=== PATIENT | female | born 1985 | race Caucasian/White ===

== ENCOUNTER 2019-09-18 15:23 | Emergency (ER) | payer OTHER, SELFPAY ==
[2019-09-18 15:32] VITALS: BP 111/55; PULSE 68; RESP 20; TEMP 36.8; O2SAT 100
--- NOTE | 2019-09-18 15:55 | ED.SKABFB ---
HPI - Skin/Abscess/Foreign Bdy General Chief complaint: Skin/Abscess/Foreign Body Stated complaint: rash on arms Time Seen by Provider: 09/18/19 15:55 Source: patient and RN notes reviewed Mode of arrival: ambulatory Limitations: no limitations History of Present Illness HPI narrative: This is a 34 years old female presents to the office for an evaluation of poison lonnie rash on her left arm. States, she was working in the [employer] and came in contact with poison lonnie. She has tried a home remedies that she normal use for poison lonnie in the past with no success. She took one dose of benadry to control the the itchiness. This morning, she noticed her affected arm is more red, swollen and oozing yellow drainage from affected site. States, the rash was itchy at the beginning however is seem to subside alittle bite; however she has some pain in her arm with some tingling sensation in her fingers. Denies fever or vomiting. Denies history of diabetes. TD is up to date. Related Data Allergies Allergy/AdvReac Type Severity Reaction Status Date / Time Sulfa (Sulfonamide Allergy Unknown Rash Verified 09/18/19 15:41 Antibiotics) Review of Systems Review of Systems: Narrative: CONSTITUTIONAL: Denies fever ENT: Denies congestion CARDIOVASCULAR: Denies chest pain RESPIRATORY: Denies dyspnea GASTROINTESTINAL: Denies abdominal pain, vomiting. Reports a little nausea SKIN:Reports itchy/painful rash on her left arm MUSCULOSKELETAL: Reports left arm sore NEUROLOGIC: Denies lightheaded; however she reports feeling malaise/tired PMFSH Comments At time of signature, I agree with nursing past medical, surgical, social and family history. There is no relevant family history pertinent to the presenting complaint. Exam Narrative: Exam Narrative: GENERAL: This is a well-nourished, well-developed patient, in no apparent distress. NECK: Neck supple, non-tender with lymphadenopathy CARDIOVASCULAR: Regular rate and rhythm without murmurs, gallops, or rubs. RESPIRATORY: Clear to auscultation. Breath sounds equal bilaterally. No wheezes, rales, or rhonchi. GASTROINTESTINAL: Abdomen soft, non-tender, nondistended. Bowel sounds are active. No hepato-splenomegaly, or palpable masses. No guarding. SKIN: left anterior upper arm noted a few macular-erythema streak jose r with secondary cellulitis. NEURO: awake, alert, and oriented to person, place and time. There were no obvious focal neurologic abnormalities. Steady gait EXTREMITIES: Normal range of motion in bilateral upper extremities. Byron Coma Scale Eye Opening: Spontaneous 4 Byron Coma Scale Motor: Obeys Commands 6 Byron Coma Scale Verbal: Oriented 5 Course Vital Signs Vital signs: Vital Signs Temperature 98.3 F 09/18/19 15:32 Pulse Rate 68 09/18/19 15:32 Respiratory Rate 20 09/18/19 15:32 Blood Pressure 111/55 L 09/18/19 15:32 Pulse Oximetry 100 09/18/19 15:32 Temperature 98.3 F 09/18/19 15:32 Pulse Rate 68 09/18/19 15:32 Respiratory Rate 20 09/18/19 15:32 Blood Pressure 111/55 L 09/18/19 15:32 Pulse Oximetry 100 09/18/19 15:32 MDM - Skin/Abscess/Foreign Bdy MDM Narrative Medical decision making narrative: Discharge instructions reviewed with patient, as well as provided in writing per nursing staff. The instructions also include specific and strict return/GO TO THE ER as well as f/u information. All questions have been answered, and the patient deny any further questions with discharge and discharge plan. Differential Diagnosis Differential diagnosis: Likely abscess of skin or subcutaneous tissue, viral exanthem, dermatophytosis, urticaria, herpes zoster, cellulitis, eczema, insect bites, impetigo and contact dermatitis Critical Care Time Critical Care Time Critical Care Time: No Discharge Plan Discharge Clinical Impression: Contact dermatitis Qualifiers: Contact dermatitis type: irritant Contact dermatitis trigger: non-food plants Qualified Cod
[2019-09-18] MEDS: methylPREDNISolone ACETATE 40 MG/ML VIAL 80 MG IM (16:11)
== END 2019-09-18 16:25 | disposition home or self-care (01) ==
PROVIDERS: Emergency Provider Nurse Practitioner
DX: L24.7 Irritant contact dermatitis due to plants, except food (principal); L03.114 Cellulitis of left upper limb
CPT/HCPCS: 99213; G0463; J1030

== ENCOUNTER 2019-09-29 15:30 | Emergency (ER) | payer OTHER, SELFPAY ==
[2019-09-29 15:38] VITALS: BP 114/67; PULSE 93; RESP 16; TEMP 37.2; O2SAT 100
--- NOTE | 2019-09-29 15:40 | ED.FEVER ---
HPI - Fever General Chief Complaint: Urogenital-Female Stated Complaint: fever/nausea/lower back pain Time Seen by Provider: 09/29/19 15:41 Source: patient and RN notes reviewed History of Present Illness HPI Narrative: Patient is a 34-year-old female that presents the urgent care with complaints of possible UTI. Patient states that she has had fever, nausea, low back pain and urinary frequency. Patient states on the seventh she was placed on Keflex and believes she developed a yeast infection from the medication. Patient was on the medication for cellulitis, secondary to poison lonnie. Patient has not been seen since her symptoms of the yeast infection. Patient states that the yeast infection has improved without any caww-jom-qddxmtp treatment. Patient states she has minimal discharge at this time. Patient states that she just completed the Keflex today and noticed the medication was the cause for her nausea. Patient denies any vomiting or abdominal pain. Patient does have a history of one kidney stone. No other acute complaints. No acute distress noted. Patient aware the plan of care. Related Data Allergies Allergy/AdvReac Type Severity Reaction Status Date / Time Sulfa (Sulfonamide Allergy Unknown Rash Verified 09/18/19 15:41 Antibiotics) Review of Systems Review of Systems: Narrative: CONSTITUTIONAL: Reports of low-grade fevers EYES: Denies visual changes, redness, or discharge. ENT: Denies rhinorrhea, congestion, sore throat, or otalgia. CARDIOVASCULAR: Denies chest pain, palpitations, or edema. RESPIRATORY: Denies cough or dyspnea. GASTROINTESTINAL: Reports of nausea without vomiting, diarrhea, abdominal pain GENITOURINARY: Reports of urinary frequency SKIN: Denies rash or itching. MUSCULOSKELETAL: Reports of low back pain NEUROLOGIC: Denies headache, numbness, or weakness. All other systems reviewed are negative, except as documented in HPI. PMFSH Comments At the time of my signature, I reviewed and agree with the nursing past medical, surgical, social, and family history. There is no relevant family history pertinent to the patient complaint. Exam Narrative: Exam Narrative: GENERAL: This is a well-nourished, well-developed patient, in no apparent distress. HEAD: normocephalic, atraumatic. EYES: PERRL. Sclera clear/white. Vision is grossly intact. EARS: External ears normal NOSE: External nose normal with no obvious nasal discharge THROAT: Mucous membranes moist NECK: Neck supple GASTROINTESTINAL: Abdomen soft, non-tender, nondistended. SKIN: warm, intact with no suspicious lesions or rash, good texture and turgor. NEURO: awake, alert, and oriented to person, place and time. There were no obvious focal neurologic abnormalities. EXTREMITIES: No clubbing, cyanosis, or edema. BACK: Mild bilateral CVA tenderness Course Vital Signs Vital signs: Vital Signs Temperature 98.9 F 09/29/19 15:38 Pulse Rate 93 09/29/19 15:38 Respiratory Rate 16 09/29/19 15:38 Blood Pressure 114/67 09/29/19 15:38 Pulse Oximetry 100 09/29/19 15:38 Temperature 98.9 F 09/29/19 15:38 Pulse Rate 93 09/29/19 15:38 Respiratory Rate 16 09/29/19 15:38 Blood Pressure 114/67 09/29/19 15:38 Pulse Oximetry 100 09/29/19 15:38 Reviewed MDM - Fever MDM Narrative Medical decision making narrative: Reviewed lab results with the patient. She is aware that urine analysis was negative for indicative infection however there was a small amount of blood in the urine. We will culture the urine and call you if antibiotics are necessary based on culture results. If you do not get a call within 3 days it is likely negative however you may check back at the facility after the 72-hour period. Advised the patient to increase water intake and eat a bland diet. Use Zofran as needed for nausea. If you develop any increase in symptoms associated with increased low back pain, nausea, vomiting, abdominal pain, high fevers, lethargy
== END 2019-09-29 16:08 | disposition home or self-care (01) ==
PROVIDERS: Emergency Provider Nurse Practitioner Family; PCP Nurse Practitioner Adult Health
DX: R11.0 Nausea (principal)
CPT/HCPCS: 81003; 87086; 99213; G0463

== ENCOUNTER 2023-10-25 15:48 | Emergency (ER) | payer OTHER, SELFPAY ==
[2023-10-25 15:55] VITALS: BP 119/78; PULSE 98; RESP 20; TEMP 36.7; O2SAT 100
--- NOTE | 2023-10-25 17:02 | ED.DENTAL ---
HPI - Dental/Oral General Chief complaint: Dental/Oral Stated complaint: Toothache Time Seen by Provider: 10/25/23 16:35 Source: patient, RN notes reviewed and old records reviewed Mode of arrival: ambulatory Limitations: no limitations History of Present Illness HPI Narrative: 38 year old female who presents to [facility] care with complaints of dental pain to the left most posterior molar and swelling to her left side of face for the past 3 days. Patient reports that pain has increased and now swelling to the left side of her face. Patient reports throbbing type of pain rates her pain at 6/10. Patient reports no difficulty with her swallowing or with her breathing. MD Complaint: tooth pain Location: Tooth # (17) Onset (ago): day(s) (3rd day of symptoms) Severity scale (1-10): 6 Treatment prior to arrival: oral analgesic (Naproxen and Tramadol) Related Data Home Medications Medication Instructions Recorded Confirmed cyclobenzaprine 5 mg tablet 5 mg PO TID PRN Spasms 10/25/23 10/25/23 naproxen 500 mg tablet 500 mg PO BID 10/25/23 10/25/23 Allergies Allergy/AdvReac Type Severity Reaction Status Date / Time Sulfa (Sulfonamide Allergy Unknown Rash Verified 10/25/23 16:16 Antibiotics) Review of Systems Review of Systems: CONSTITUTIONAL: Denies fever, chills, or sweats. ENT: Denies rhinorrhea, congestion, sore throat, or otalgia. Reports dental pain to #17 tooth CARDIOVASCULAR: Denies chest pain, palpitations, or edema. RESPIRATORY: Denies cough or dyspnea. SKIN: Denies rash or itching. MUSCULOSKELETAL: Denies myalgia. NEUROLOGIC: Denies headache All systems reviewed & are unremarkable except as noted in HPI and below [facility] Past Medical History Medical History (Updated 10/27/23 @ 16:24 by Radha López NP) Fracture of left wrist Herniated cervical disc Kidney stones Surgical History Surgical History (Updated 10/27/23 @ 16:16 by Radha López NP) H/O tubal ligation History of tonsillectomy Previous section Social History Social History Smoking status: Current every day smoker Tobacco type: cigarettes Alcohol intake: current Alcohol use details: social Substance use type: does not use Living arrangements: with family Gender identity (if verbalized by the patient): Female Comments At time of signature, agree with nursing past medical, surgical, social and family history. There is no relevant family history pertinent to the presenting complaint Exam Narrative: GENERAL: Well-appearing, well-nourished, and in no acute distress. HEAD: Normocephalic, atraumatic. EYES: PERRLA and EOMI. ENT: Nares clear, no rhinorrhea or epistaxis. Mucous membranes moist. Left lower wisdom tooth impacted, facial swelling to the left side of face. NECK: Supple.no lymphadenopathy CHEST: Clear to auscultation. No respiratory distress.SAO2 100% on room air HEART: Regular rate and rhythm. No murmur heard. Normal peripheral pulses. SKIN: Warm, dry, no rash. NEURO: No focal deficits. Alert and oriented x3. Course Course Emergency Course: Patient is aware of diagnosis, understands and agrees to treatment plan. Anticipatory guidance given. Patient agrees to follow-up as directed and is aware of reasons to seek care at the emergency department. Portions of this record may have been created with voice recognition software Level of Care: Express Care Visit Vital Signs Vital signs: Vital Signs Temperature 36.7 C 10/25/23 15:55 Pulse Rate 98 10/25/23 15:55 Respiratory Rate 10/25/23 15:55 Blood Pressure 119/78 10/25/23 15:55 Pulse Oximetry 100 10/25/23 15:55 Oxygen Delivery Room Air 10/25/23 15:55 Temperature 36.7 C 10/25/23 15:55 Pulse Rate 98 10/25/23 15:55 Respiratory Rate 10/25/23 15:55 Blood Pressure 119/78 10/25/23 15:55 Pulse Oximetry 100 10/25/23 15:55 Oxygen Delivery Room
== END 2023-10-25 17:25 | disposition home or self-care (01) ==
PROVIDERS: Emergency Provider Registered Nurse; PCP Physician Assistant
DX: K08.89 Other specified disorders of teeth and supporting structures (principal); R22.0 Localized swelling, mass and lump, head; F17.210 Nicotine dependence, cigarettes, uncomplicated
CPT/HCPCS: 99213; G0463

== ENCOUNTER 2025-02-20 08:26 | Emergency (ER) | payer OTHER, SELFPAY ==
--- NOTE | ~2025-02-20 | XR_ITS ---
EXAMINATION: XR toe 5th LT min 2V DATE: 02/20/2025 08:50 INDICATION: Trauma to the left fifth toe TECHNIQUE: Dorsal plantar, lateral and 2 oblique views of the left fifth were obtained. COMPARISON: None FINDINGS: Alignment is normal. No fracture. Joint spaces are normal. Soft tissues are unremarkable. IMPRESSION: Negative radiographs of the left fifth toe. Reviewed, dictated and finalized at location A.
--- OUTSIDE RECORDS SUMMARY | 2025-02-20 08:30 | XMS_ITS | Clinical Summary ---
Author Organization [facility] Address [address] [place] [address] Care Team Providers Care Entry Level Marketing Representative Name Role Phone Tucker Mark [employer] ARCHITECT-GAS WELL DRILLING MANAGER Primary Care Provider [phone] Source Comments [facility],non-owned Affiliates and Associated Physician Practices is amultiple site organization consisting of ambulatory clinics and hospital sitesin [place], [place], [place] and [place]. This disclosure is being madepursuant to the Care Everywhere program and may not contain all information available regarding this patient. Last updated 18.[facility] Allergies Active Allergy Reactions Criticality Noted Date Comments Sulfa Drugs Urticaria Medium 11/25/2017 Medications * Be aware that medications may not be up to date on this document. Alwaysverify current medications with the patient. 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 Velamentous insertion of umbilical cord in third trimester 10/23/2014 Social History Tobacco Use Types Packs/Day Years Used Date Smoking Tobacco: Every Day Smokeless Tobacco: Never Alcohol Use Standard Drinks/Week Comments Yes 0 (1 standard drink = 0.6 oz pur e alcohol) Comments No Sex and Gender Information Value Date Recorded Sex Assigned at Not on file 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 Gender Identity Not on file Sexual Orientation Not on file Last Filed Vital Signs Vital Sign Reading Time Taken Comments Blood Pressure 110/70 02/07/2022 11:04 AM CDT Pulse 90 02/07/2022 11:04 AM CDT Temperature - - Respiratory Rate - - Oxygen Saturation 100% 02/07/2022 11:04 AM CDT Inhaled Oxygen Concentration - - Weight 65.3 kg (144 lb) 02/07/2022 11:04 AM CDT Height 160 cm (5' 3) 02/07/2022 11:04 AM CDT Body Mass Index 25.51 02/07/2022 11:04 AM CDT Plan of Treatment Health Maintenance Due Date Last Done Comments LIPID TESTING 1983 MAMMOGRAM 1983 HIV SCREENING 1998 HEPATITIS C SCREENING 07/04/2001 DTAP/TDAP/TD VACCINES (1 - Tdap) 2002 HEPATITIS B VACCINE (1 of 3 - 19+ 3-dose series) 2002 PNEUMOCOCCAL VACCINE (1 of 2 - PCV) 2002 PAP SMEAR 2004 HPV VACCINE (1 - 3-dose SCDM series) 2010 DEPRESSION SCREENING 05/14/2024 COVID-19 VACCINE (1 - 2023-2 5 season) 2025 INFLUENZA VACCINE (#1) 2025 9, 04/11/2016 ZOSTER VACCINE (1 of 2) 2033 HIB VACCINE Aged Out No longer eligi ble based on patient's age to complete this topic MENINGOCOCCAL (Group B) VACCINE SHARED DECISION-MAKING Aged Out No longer eligible based on patient's age to complete this topic MENINGOCOCCAL GROUPS A/C/Y/W VACCINE Aged Out No longer eligible b ased on patient's age to complete this topic Insurance [facility] Care Teams Entry Level Marketing Representative Relationship Specialty Start Date End Date Tucker Mark, SOFTWARE SOLUTIONS ARCHITECT-GAS WELL DRILLING MANAGER [address] [facility] [address]Z [address] [address] PCP - General 01/06/22
--- OUTSIDE RECORDS SUMMARY | 2025-02-20 08:31 | XMS_ITS | Clinical Summary ---
Author Organization [facility] Address [address] [address] Phone Care Team Providers Care Customer Service Attendant Name Role Phone YadipippaEricka turner SHAYAN Primary Care Provider + Allergies Active Allergy Reactions Criticality Noted Date Comments Sulfa Antibiotics Hives 11/25/2017 Medications diphenhydrAMINE HCl (BENADRYL PO) Take by mouth. Active traMADol (ULTRAM) 50 MG TabletIndications:B ulging of cervical intervertebral disc,Cervical radiculopathy at C5 Take 1 Tablet by mouth every 6 hours as needed for Moderate or more severe pain. 90 Tablet 4 Active cyclobenzaprine (FLEXERIL) 5 MG Tablet Take 1 Tablet by mouth 3 times daily as needed for Muscle spasms. 42 Tablet 1 4 Active naproxen (NAPROSYN) 500 MG Tablet TAKE 1 TABLET BY MOUTH TWICE DAILY WITH MEALS 60 Tablet 5 4 Active Active Problems Problem Noted Date Diagnosed Date Incidental lung nodule, > 3mm and < 8mm 02/01/20 22 Cervical radiculopathy 01/31/2022 Bulging of cervical intervertebral disc 12/21/19 22 Immunizations Immunization Administration Dates Next Due Hepatitis A Vaccine 04/07/2008 Influenza, Injectable, Quadrivalent 02/20/2019,1 06/11/2015 Influenza, Seasonal, Injectable, Undefined 03/19 TDAP Vaccine 10/02/2014 Family History Medical History Relation Name Comments Chronic Obstructive Pulmonar y Disease Father Uche Ochoa Heart Attack Father Uche Ochoa Hypertension Mother Radha velasquez Thyroid Disease Mother Radha velasquez Cancer Paternal Grandfather Ric ochoa Relation Name Status Comments Father Uche Ochoa Alive Mother Radha velasquez Alive Paternal Grandfather Ric ochoa Social History Tobacco Use Types Packs/Day Years Used Date Smoking Tobacco: Every Day Cigarettes 1 23.3 Started: 11/08/2001 Smokeless Tobacco: Never Tobacco Cessation:Ready to Q uit: Not Asked; Counseling Given: Not Answered Alcohol Use Standard Drinks/Week Comments Yes 0 (1 standard drink = 0.6 oz pur e alcohol) socially PHQ-2 Answer Date Recorded Total Score - Questions 1-9 0 10/13 Education Answer Date Recorded What is the highest level of school you have completed or the highest degree you have received? 12th grade 05/31/2022 Sexually Active Control Partners Comments Yes Surgical Male Comments No Sex and Gender Information Value Date Recorded Sex Assigned at Not on file Legal Sex Female 3:48 PM CDT Gender Identity Not on file Sexual Orientation Not on file Last Filed Vital Signs Vital Sign Reading Time Taken Comments Blood Pressure 114/62 01/02/2023 10:26 AM CDT Pulse 73 01/02/2023 10:26 AM CDT Temperature 36.5 C (97.7 F) 01/02/2023 10:26 AM CDT Respiratory Rate 16 09/14/2022 10:04 AM CDT Oxygen Saturation 99% 01/02/2023 10:26 AM CDT Inhaled Oxygen Concentration - - Weight 62.1 kg (137 lb) 01/02/2023 10:26 AM CDT Height 160 cm (5' 3) 01/02/2023 10:26 AM CDT Body Mass Index 24.27 01/02/2023 10:26 AM CDT Plan of Treatment Upcoming Encounters Date Type Department Care Team (Late st Contact Info) Description 03/09/2025 4:40 PM CDT Office Visit [facility] - Family Medicine [facility] [address] [place] [address] Ericka Kaufman, PAC [address] [place] [address] Health Maintenance Due Date Last Done Comments Hepatitis C Virus (HCV) Screening 1983 Mammogram 1983 Hepatitis B Immunization (1 of 3 - 19+ 3-dose series) 2002 Human Papillomavirus (HPV) Immunization (1 - 3-dose SCDM series) 2010 Discussion re Starting/Frequency of Mammograms 2023 Td Immunization Every 10 Yea rs (Adults With 1 Tdap) 10/02/2024 10/02/2014 Influenza Immunization (#1) 01/12/202502/11, 04/11/2016, 03/19/2015 SARS-COV-2 Immunization (2 - season) 2025 09/25/2020 Pap Smear 02/08/2025 02/08/2022 Cervical Cancer Screening (CCS) 02/08/2027 HPV/Cotest 02/08/2027 02/08/2022 Respiratory Syncytial Virus (RSV) Immunization (Adult) (1 - 1-dose 75+ series) 2058 DTaP/Tdap/Td Immunization Discontinued 10/02/2014 Meningococcal Immunization (ACWY) Aged Out No longer eligible based on patient's age to complete this topic Pneumococcal Immunization Combined Aged Out No longer eligible based on patient's age to complete this topic Rotavirus Immunization Aged Out No lo nger eligible based on patient's age to complete this topic Procedures Procedure Name Priority Date/Time Associated Diagnosis Comments HUMAN PAPILLOMA VIRUS (HPV) Routine 02/08/2022 10:57 AM CDT Well woman exam PATHOLOGY CYTOLOGY REGULATORY ASSISTANT Routine 02/08/2022 10:57 AM CDT Well woman exam from Last 3 Months or Most Recently Relevant to Health Maintenance Results * PATHOLOGY CYTOLOGY REGULATORY ASSISTANT (02/08/2022 10:57 AM CDT) SPECIMEN ADEQUACY Satisfactory for evaluation. Endocervical/transf ormation zone component is present. 02/17/2022 3:45 PM CDT [facility] DESCRIPTIVE DIAGNOSIS NEGATIVE FOR INTRAEPITHELIAL LESIONS OR MALIGNANCY. 02/17/2022 3:45 PM CDT [facility] at 1545 CDT HPV Reflex if ASCUS? No 02/17/2022 3:45 PM CDT [facility] Comment:co test Automated Examination This sample was not evaluated by the automated imaging and review system due to technical and/or biologic factor(s). The case was screened, reviewed, and finalized by a cartoon designer and/or pathologist. 02/17/2022 3:45 PM CDT [facility] Disclaimer The PAP smear is a screening test designed to detect cancerous or precancerous cells of the uterine cervix. It is one of the best means available for detection of cervical cancer but still carries an inherent false-negative rate. The consequences of a false-negative PAP result can be minimized by adhering to current screening guidelines. The following are general guidelines recommended by the ACS, ASCP, ASCCP, and ACOG: PAP testing is recommended every three years for women 21-29, Co-Testing, a PAP test in conjunction with an HPV (Human Papillomavirus) test for women ages 30-65, and no PAP or HPV testing for women under the age of 21 or older than 65 unless clinically indicated. 02/17/2022 3:45 PM CDT [facility] Other CERVIX UTERI STRUCTURE / Unknown Non-Phlebotomy Collection / Unknown 02/08/2022 10:57 AM CDT 02/08/2022 10:57 AM CDT us Ericka Kaufman PAC PATHOLOGY/CYTOLOGY ORDER EAN Final Result [facility] [address] [place] [address], * HUMAN PAPILLOMA VIRUS (HPV) (02/08/2022 10:57 AM CDT) HPV OTHER HIGH RISK TYPES, PCR NEGATIVE NEGATIVE 02/09/2022 1:45 PM CDT [facility] Comment: The following Other High Risk types were not detected: 31, 33, 35, 39, 45, 51, 52, 56, 58, 59, 66, and 68. A negative high-risk HPV result does not exclude the possibility of future cytologic HSIL or underlying CIN2-3 or cancer. The presence of PCR inhibitors may cause false negative or invalid results. If concentrations of whole blood in the sample exceed 1.5% (dark red or brown coloration) in PreservCyt solution, there is a likelihood of obtaining a false-negative result. HPV TYPE 16 NEGATIVE NEGATIVE 02/09/2022 1:45 PM CDT [facility] Comment: A negative high-risk HPV result does not exclude the possibility of future cytologic HSIL or underlying CIN2-3 or cancer. The presence of PCR inhibitors may cause false negative or invalid results. If concentrations of whole blood in the sample exceed 1.5% (dark red or brown coloration) in PreservCyt solution, there is a likelihood of obtaining a false-negative result. HPV TYPE 18 NEGATIVE NEGATIVE 02/09/2022 1:45 PM CDT [facility] Comment: A negative high-risk HPV result does not exclude the possibility of future cytologic HSIL or underlying CIN2-3 or cancer. The presence of PCR inhibitors may cause false negative or invalid results. If concentrations of whole blood in the sample exceed 1.5% (dark red or brown coloration) in PreservCyt solution, there is a likelihood of obtaining a false-negative result. HPV ORDER BE USED FOR SCREENING OR DIAGNOSTIC SCREENING 02/09/2022 1:45 PM CDT [facility] Other Non-Phlebotomy Collection / Unknown 02/08/2022 10:57 AM CDT 02/08/2022 10:57 AM CDT [facility] - 02/09/2022 1:45 PM CDT Performed by Real-Time Polymerase Chain Reaction (PCR) on the D[employer] Kiko 4800. This assay has been validated for use with post-aliquot samples from the [employer] T5000 processor. Ericka Kaufman [facility] SEND OUTS Final Re sult [facility] [address] [place] [address], [facility] [address] [place] [address] from Last 3 Months or Most Recently Relevant to Health [place] [address] MEDICAID [employer] Care Teams Customer Service Attendant Relationship Specialty Start Date End Date Ericka Kaufman PAC [address] [place] [address] PCP - General Physician Sales Representative [employer] 11/08/21
--- OUTSIDE RECORDS SUMMARY | 2025-02-20 08:31 | XMS_ITS | Data Portability ---
Author Organization [facility] Address [address] [place] [address] Assessment No assessment recorded. Plan of Treatment Reminders Order Date Submit Date Provider Last Modified By Organization Details Last Modified Time Details Appointments None recorded. Lab CBC 2015 016 [facility], [address] [place] [address], [facility] [address], [place], [address], 6 04:32:56 TSH, ultra-sensi tive, serum 2015 016 [facility], [address] [place] [address], [facility] [address], [place], [address], 6 04:32:57 CMP, serum or plasma 2015 016 [facility], [address] [place] [address], [facility] [address], [place], [address], 6 04:32:54 lipid panel, serum 2015 016 [facility], [address] [place] [address], [facility] [address], [place], [address], 6 04:32:45 Referral None recorded. Procedures None recorded. Surgeries None recorded. Imaging None recorded. Medication Orders doxycycline monohydrate 100 mg capsule 2017 018 [id number] [facility], [facility], [place], [place], [id number], 9 14:21:24 diclofenac potassium 50 mg tablet 2017 018 [facility], [address], [place], [place], [id number], 9 14:21:20 Patient TargetsNo targets recorded. Patient Instructions Encounter Date Encounter Id Patient Instructions Last Modified By Organization Details Last Modified Time 04/11/2016 [id number] influenza (flu) vaccine: care instructions Not available 04/11/2016 14:41:01 12/05/2017 [id number] If pain cont mor e than 2 weeks notify office for ortho referral ltardino Not available 12/05/2017 15:14:14 05/08/2018 [id number] deciding about using medicines to quit smoking ssuthan Not available 05/08/2018 11:06:13 Quitting Tobacco : Care Instructions ssuthan Not available 05/08/2018 11:06:13 upper respirator y infection (cold): care instructions ssuthan Not available 05/08/2018 11:06:13 02/20/2019 [id number] influenza (flu) vaccine: care instructions ltardino Not available 02/20/2019 14:49:44 Drink plenty of fluids, Get plenty of rest. Take Tylenol as dir. OTC ltardino Not available 02/20/2019 15:32:57 Reason for Referral None Reported. Results Created Date Observation Date Name Description Value Unit Range Abnormal Flag Note LastModifiedBy Organization Detail LastModifiedTime 02/17/20 16 02/12/2016 XR, wrist , 3 or more view No observ ation record ed. [address], [place], [address], 02/22/2016 15:42:41 12/25/19 18 11/25/2016 XR, ankle , 3 or more view No observ ation record ed. ardino Not Available 2017 10:18:49 12/25/19 18 11/25/2017 XR, foot, 3 or more view No observ ation record ed. ltardino Not Available 2017 10:18:49 Result Notes None recorded. Problems No Known Problems Procedures Surgical History Date Name Laterality Status Provider Name and Address Organization Details Recorded Time 05/14/18 96 Tonsillectomy completed Lynda Page MA [facility] 10/15/2014 15:19:21 Caesarean Section completed Lynda Page MA [facility] 04/11/2016 11:06:20 Tubal Ligation completed Lyndaduc Page MA [facility] 04/11/2016 11:06:52 Imaging Results None recorded. Procedure Notes None recorded. Medical Equipment None Reported. Allergies Allergen ID Allergen Name Allergen Category Reaction Reaction Severity Criticality Documentation Date Start Date Code Code System Note Provider Name and Address Organization Details Recorded Time 58858 Substance with sulfonami de structure and antibacte rial mechanism of action (substanc e) medicatio n rash Not available Not available 10/15/2014 [id number] [address] Shah, [facility] 5 15:19:21 Medications Name Sig Start Date Stop Date Status Note LastModified by Organization Details LastModified Time azithromyci n 250 mg tablet TAKE 2 TABLETS (500 MG) BY ORAL ROUTE ONCE DAILY FOR 1 DAY THEN 1 TABLET (250 MG) BY ORAL ROUTE ONCE DAILY FOR 4 DAYS 05/08 completed Not Available Not Available Not Available ibuprofen 800 mg tablet 04/11 completed Not Available Not Available Not Available hydrocodone 5 mg-acetamin ophen 325 mg tablet 04/11 completed Not Available Not Available Not Available prednisone 20 mg tablet TAKE 1 TABLET BY MOUTH TWICE DAILY FOR 5 DAYS active Not Available Not Available No t Available tramadol 50 mg tablet TAKE 1 TABLET BY MOUTH EVERY 8 HOURS NEEDED FOR MODERATE TO SEVERE PAIN active Not Available Not Available No t Available ketorolac 10 mg tablet active Not Available Not Available Not Available methocarbam ol 750 mg tablet TAKE 1 TABLET BY MOUTH EVERY 4 HOURS NEEDED FOR MUSCLE SPASM active Not Available Not Available No t Available ciprofloxac in 0.3 % eye drops INSTILL 1 DROP INTO AFFECTED EYE(S) BY OPHTHALMI C ROUTE EVERY 2 HOURSWHIL E AWAKE FOR 2 DAYS THEN 1 DROP EVERY 4 HRS WHILE AWAKE FOR 5 DAYS 12/05 completed Not Available Not Available Not Available doxycycline monohydrate 100 mg capsule Take 1 capsule twice a day by oral route for 7 days. 02/20 completed Not Available Not Available Not Available cephalexin 500 mg capsule active Not Available Not Available Not Available polymyxin B sulfate 10,000 unit-trimet hoprim 1 mg/mL eye drops INSTILL 1 DROP INTO AFFECTED EYE(S) BY OPHTHALMI C ROUTE EVERY 6 HOURS 12/05 completed Not Available Not Available Not Available diclofenac potassium 50 mg tablet Take 1 tablet twice a day by oral route. 02/20 completed Not Available Not Available Not Available mupirocin 2 % topical ointment active Not Available Not Available Not Available ibuprofen 600 mg tablet TAKE 1 TABLET BY MOUTH EVERY 6 HOURS WITH FOOD NEEDED FOR MODERATE TO SEVERE PAIN active Not Available Not Available No t Available methylpredn isolone 4 mg tablets in a dose pack 05/08 completed Not Available Not Available Not Available flavoxate 100 mg tablet 04/11 completed Not Available Not Available Not Available Vitamin D2 1,250 mcg (50,000 unit) capsule active Not Available Not Available Not Available ondansetron 4 mg disintegrat ing tablet active Not Available Not Available N ot Available loratadine 10 mg tablet 04/11 completed Not Available Not Available Not Available amoxicillin 875 mg-yaniqueu m clavulanate 125 mg tablet 05/08 completed Not Available Not Available Not Available cyclobenzap rine 5 mg tablet TAKE 1 TABLET BY MOUTH THREE TIMES DAILY FOR 5 DAYS active Not Available Not Available No t Available nitrofurant oin monohydrate /macrocryst als 100 mg capsule active Not Available Not Available Not Available Banophen 50 mg capsule 02/20 completed Not Available Not Available Not Available Vitals Date Recorded Body height Provider Name an d Address Organization Details Last Updated DateTime 09/29/2019 162.56 cm Lynda Page MA [facility] 2019 14:37:52 Date Recorded Respiratory rate Body weight Heart rate Body mass index (BMI) Body height Body temperature Systolic And Diastolic Provider Name and Address Organization Details Last Updated DateTime 5 16 /min 81882.9 5214 g 100 /min 30.1 kg/m2 162.56 cm 98 [degF] 108/50 mm[Hg] Lynda Page MA [facility] 5 15:19:21 Date Recorded Body height Body mass index (BMI) Body weight Heart rate Respiratory rate Body temperature Systolic And Diastolic Provider Name and Address Organization Details Last Updated DateTime 8 162.56 cm 23.5 kg/m2 34627.5 9 g 72 /min 16 /min 97.7 [degF] 106/70 mm[Hg] Lynda Page MA [facility] 8 14:18:18 Date Recorded Body height Body mass index (BMI) Body weight Heart rate Respiratory rate Body temperature Oxygen saturation Oxygen saturation in Arterial blood by Pulse oximetry Systolic And Diastolic Provider Name and Address Organization Details Last Updated DateTime 9 162.56 cm 26.9 kg/m2 74908 g 85 /min 18 /min 98.4 [degF] 99 % 99 % 112/64 mm[Hg] Richa Maradiaga RN [facility] 9 14:20:32 Date Recorded Body height Body weight Body mass index (BMI) Heart rate Respiratory rate Body temperature Systolic And Diastolic Provider Name and Address Organization Details Last Updated DateTime 6 162.56 cm 87636.5 2 g 24.2 kg/m2 88 /min 16 /min 98.2 [degF] 100/58 mm[Hg] Lynda Page MA [facility] 6 11:05:20 Date Recorded Body height Oxygen saturation Oxygen saturation in Arterial blood by Pulse oximetry Heart rate Respiratory rate Body temperature Body mass index (BMI) Body weight Systolic And Diastolic Provider Name and Address Organization Details Last Updated DateTime 8 162.56 cm 98 % 98 % 74 /min 18 /min 98.4 [degF] 24.9 kg/m2 26765.8 9 g 110/72 mm[Hg] Mary Macias MA [facility] 8 10:55:37 Social History Question Answer Notes LastModified by Organizat ion Details LastModified Time Tobacco Smoking Status Current Every Day Smoker Lynda Page MA null, [facility] 10/15/2014 15:19:21 Marital Status Informatio n not available 10/15/2014 What Was The Date Of Your Most Recent Tobacco Screening? 05/08/2018 Information n ot available 12/05/2018 How Much Tobacco Do You Smoke? 0.5 PPD Information not available 10/15/2014 How Many Years Have You Smoked Tobacco? 12 Information not available 10/15/2014 Sex: Unknown Functional Status Question Answer Note LastModified by Organization D etails LastModified Time What is your level of alcohol consumption? Moderate Information not available 12/05/2017 Mental Status None recorded. Family History Relationship Description Onset Age of this Age Resolved Age Notes LastModified by Organization Details LastModified Time Mother Asthma Not available 10/15/2014 15:19:21 Mother Disorder of thyroid gland Not available 2014 15:19:21 Father Harmful pattern of use of alcohol Not available 2014 15:19:21 Father Hypercholest erolemia Not available 2014 15:19:21 Medical History Condition Response Coronary Artery Disease N Other N High Blood Pressure N Atrial Fibrillation N Kidney or Bladder Problems N Thyroid Problems N GI Problems N Depression N COPD N Blood Clots N Skin Problems N Anemia N Heart Attack (NC) N Anxiety Disorder N Diabetes N Muscle, Joint, or Bone Problems N Seizures/Epilepsy N Acid Reflux (GERD) N Cancer N Stroke N Asthma N Allergies N High Cholesterol N Hepatitis N Liver Disease N Headaches N Heart Failure N Osteoporosis N Gynecological HistoryNo gynecological history recorded. Obstetrics History GPAL:G 0 P 0 0 0 0 Immunizations Vaccine Type Date Status Note Provider Nam e and Address Organization Details Recorded Time Influenza, split virus, quadrivalent, preservative 6 completed Not Available [facility] 05/31/2019 02:42:35 Influenza, split virus, quadrivalent, preservative 9 completed Not Available [facility] 05/31/2019 02:38:14 Past Encounters Encounter ID Performer Location Encounter Start Date Encounter Closed Date Diagnosis/Indication Diagnosis SNOMED-CT Code Diagnosis ICD10 Code Diagnosis IMO Codes Diagnosis Note [id number] Tucker Mark, ESTEFANY-LINDSAY [facility] [address] [place] [address] 10/15/2014 15:09:05 10/15/2014 16:25:56 [id number] Adult heal th examination [id number] [facility] [address] [place] [address] 04/11/2016 10:43:19 04/11/2016 13:46:35 Adult health examination 747668912 Z00.00 Administra tion of influenza vaccine 84889890 Z23 [id number] BENEDICT Cartagena 14 IM [address] [facility] [place] [address] 12/05/2017 14:10:29 12/05/2017 16:00:49 Pain in left foot 6985255614 71335 M79.286 [id number] MD Kathrin Hood 14 IM [address] [facility] [place] [address] 05/08/2018 10:46:56 05/08/2018 15:26:10 Acute upper respiratory infection 12191619 J06.9 Hydrate well. 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 F17.200 Recommend to slow wilbert and quit at the earliest- 1/2 PPD [id number] MD Kathrin Humphreys 14 IM [address] [facility] [place] [address] 02/20/2019 13:54:49 02/21/2019 08:56:33 Administration of influenza vaccine 48230818 Z23 Viral syndrome 076304078 B34.9 Health Concerns Section Related Observation LastModified by Organization Detai ls LastModified Time None Recorded Concern Status LastModified by Organization Details LastModified Time None Recorded Advance Directives Directive None Recorded Payers Insurance Date Sequence Insurance Name Policy Number Policy Pedraza Covered Member ID Pedraza Member ID Guarantor Name 03/16/2020 SLIDING FEE SCHEDULE - DISCOUNT Mira Abdul 11/16/2021 1 [facility] (MEDICAID HMO) [id number] Mira Abdul [id number] Mira Abdul 09/30/2019 1 [place] Mira Abdul [id number] Mira Abdul 09/30/2019 1 [facility] - DOS PRIOR TO 2020 (MEDICAID REPLACEMENT - HMO) Mira Abdul [id number] Mira Abdul Notes Date Note Type Note Provider Name and Address Organization Details Recorded Time 5 text/html Generic HPI TemplateReported by PatientHere to est. PCP Pt is 34 weeks with twins Denies any c/os MarleneGracie Mark ebenezer, [facility] 10/15/2014 16:14:51 6 text/html Here for yearly physical. States she feels good and denies any c/os. VENU Shah, [facility] 04/11/2016 14:16:25 8 text/html Generic HPI TemplateReported by PatientER f/u for left ankle sprain Cont to c/o pain Acs bandage in place Tucker sol, [facility] 12/05/2017 15:14:33 8 text/html Upper Respiratory SymptomsReported by PatientUpper Respiratory SymptomsFor quality, patient reportsproductive cough. For context, patient reportssmokerbut reportsno sick contacts. For associated symptoms, patient reportsyellow sputumbut reportsno shortness of breath,no wheezing, andno fever. For location, patient reportschestandthroat. For duration, (started 3-4 days ago).Here with 3 kids, all of them having same issue as mom.ROS as noted in the HPI Josey Sheehan MD Attn: Accounting,[address] [place], [address], [facility] 05/08/2018 14:09:26 9 text/html ER f/u for possible kidney stone and then had a rash States rash is improving and she is feeling better Tucker sol, [place] [facility] 02/20/2019 15:33:14 OBGyn Episode No OBEpisode recorded.
--- OUTSIDE RECORDS SUMMARY | 2025-02-20 08:31 | XMS_ITS | Encounter Summary ---
Author Organization [facility] Address [address] [place] [address] Phone Care Team Providers Care Customer Counter Associate Name Role Phone Ericka Kaufman Primary Care Provider + Reason for Visit * Reason Comments Medication Refill Encounter Details Date Type Department Care Team (Late st Contact Info) Description 09/21/2022 Refill [facility] [address] [place] [address] Ericka Kaufman PAC [address] [place] [address] Medication Refill Social History Tobacco Use Types Packs/Day Years Used Date Smoking Tobacco: Every Day Cigarettes 1 23.3 Started: 11/08/2001 Smokeless Tobacco: Never Alcohol Use Standard Drinks/Week [...] on file Sexual Orientation Not on file COVID-19 Exposure Response Date Recorded In the last 10 days, have yo u been in contact with someone who was confirmed or suspected to have Coronavirus/COVID-19? No / Unsure 09/14/2022 9:56 AM CDT documented as of this encounter Miscellaneous Notes * Telephone Encounter - Marian Heath RN - 09/21/2022 4:45 PM CDT Medication failed the protocol, provider to review and approve the medication order if appropriate. Requested Prescriptions Pending Prescriptions Disp Refills naproxen (NAPROSYN) 500 MG Tablet [Pharmacy Med Name: NAPROXEN 500MG TABLETS] 60 Tablet 0 Sig: TAKE 1 TABLET BY MOUTH TWICE DAILY WITH MEALS NSAIDs Protocol Failed - 09/21/2022 1:18 PM Failed - Normal serum creatinine in past 12 months CREATININE, BLOOD Date Value Ref Range Status 02/08/2022 0.57 (L) 0.60 - 1.10 mg/dL Final Failed - No matching NSAID med order in past 45 days Matching medication order placed on 08/23/2022 8:35 AM Order [id number]: naproxen (NAPROSYN) 500 MG Tablet (For orders placed between 08/07/2022 4:45 PM and 09/21/2022 4:45 PM) Passed - No positive test in the past 12 months or most recent test was negative Passed - Visit with relevant provider in past 12 months or upcoming 90 days Recent Visits Date Type Provider Dept 09/14/22 Office Visit Ericka Kaufman PAC [facility] 05/31/22 Office Visit Ericka Kaufman PAC [facility] 02/08/22 Office Visit Ericka Kaufman PAC [facility] 01/31/22 Office Visit Ericka Kaufman PAC [facility] 12/20/21 Office Visit Ericka Kaufman PAC [facility] 11/22/21 Office Visit Ericka Kaufman PAC [facility] 11/08/21 Office Visit Ericka Kaufman PAC [facility] Showing recent visits within past 365 days and meeting all other requirements Future Appointments Date Type Provider Dept 12/15/22 Appointment Ericka Kaufman PAC [facility] Showing future appointments within next 90 days and meeting all other requirements Passed - No active on record Passed - AST less than 55 or ALT less than 90 in past 12 months SGOT (AST) Date Value Ref Range Status 02/08/2022 18 <=32 U/L Final SGPT (ALT) Date Value Ref Range Status 02/08/2022 22 <=41 U/L Final Passed - HGB greater than 10 or HCT greater than 30 in past 12 months HEMOGLOBIN (HGB) Date Value Ref Range Status 02/08/2022 13.3 12.0 - 15.8 g/dL Final HEMATOCRIT (HCT) Date Value Ref Range Status 02/08/2022 40.0 36.0 - 47.0 % Final documented in this encounter Plan of Treatment Upcoming Encounters Date Type Department Care Team (Late st Contact Info) Description 03/09/2025 4:40 PM CDT [facility] Visit [facility] [address] [place] [address] Ericka Kaufman PAC [address] [place] [address] documented as of this encounter Visit Diagnoses Not on filedocumented in this encounter Care Teams Customer Counter Associate Relationship Specialty Start Date End Date Ericka Kaufman PAC [address] [place] [address] PCP - General Physician Webbing Weaver 11/08/21 documented as of this encounter
[2025-02-20 08:34] VITALS: BP 128/84; PULSE 87; RESP 16; TEMP 36.7; O2SAT 100
--- NOTE | 2025-02-20 09:12 | ED.LOWEXIN ---
HPI - Extremity Injury (Lower) General Chief Complaint: Extremity Injury, Lower Stated Complaint: left pinky toe injury Time Seen by Provider: 02/20/25 08:50 Source: patient and RN notes reviewed Mode of arrival: ambulatory Limitations: no limitations History of Present Illness HPI Narrative: 39-year-old female presents [facility] complaining of left pinky toe injury approximately 2 weeks ago. Patient says she stepped in on her stairs at home. Patient denies any falls or any other injuries. Patient said it was previously swollen him bruising however a lot of the swelling and bruising subsided however she still reports having a lot of pain throughout her left pinky toe. Patient has been doing rice therapy along with taking naproxen with some relief. Patient denies any significant past medical problems. Related Data Home Medications ?Medication ?Instructions ?Recorded ?Confirmed ?Last Taken ?Type naproxen 500 mg tablet 500 mg PO BID 10/25/23 10/25/23 Unknown History Allergies Allergy/AdvReac Type Severity Reaction Status Date / Time Sulfa (Sulfonamide Allergy Unknown Rash Verified 02/20/25 08:41 Antibiotics) Review of Systems Review of Systems: CONSTITUTIONAL: Denies fever, chills, or sweats. EYES: Denies visual changes, redness, or discharge. ENT: Denies rhinorrhea, congestion, sore throat, or otalgia. CARDIOVASCULAR: Denies chest pain, palpitations, or edema. RESPIRATORY: Denies cough or dyspnea. GASTROINTESTINAL: Denies abdominal pain, nausea, vomiting, or diarrhea. GENITOURINARY: Denies dysuria or hematuria. SKIN: Denies rash or itching. MUSCULOSKELETAL: Denies back pain, joint pain, or myalgia. Positive for toe pain. NEUROLOGIC: Denies headache, numbness, or weakness. PSYCHIATRIC: Denies anxiety or depression. All other systems reviewed are negative, except as documented in HPI. [facility] Past Medical History Medical History Herniated cervical disc Kidney stones Fracture of left wrist Surgical History Surgical History H/O tubal ligation Previous section History of tonsillectomy Social History Social History Smoking status: Current every day smoker Tobacco type: cigarettes Alcohol intake: current Alcohol use details: social Substance use type: does not use Living arrangements: with family Gender identity (if verbalized by the patient): Female Comments At the time of my signature, I reviewed and agree with the nursing past medical, surgical, social, and family history. There is no relevant family history pertinent to the patient complaint. Exam Narrative: GENERAL: This is a well-nourished, well-developed adult, in no apparent distress. They are non ill-appearing, nontoxic appearing. HEAD: normocephalic, atraumatic. EYES: Sclera clear/white. Conjunctiva normal. Vision is grossly intact. Extraocular movements intact EARS: External ears normal, Hearing grossly intact. NOSE: External nose normal THROAT: Mucous membranes moist, NECK: Neck supple, CARDIOVASCULAR: Regular rate and rhythm RESPIRATORY: Respiratory rate normal, respiratory effort nonlabored, no respiratory distress SKIN: warm, Dry, intact with no suspicious lesions or rash, good texture and turgor. NEURO: awake, alert, and oriented to person, place and time. There were no obvious focal neurologic abnormalities. EXTREMITIES: Left foot: No obvious deformity, bruising, redness, swelling, or injury. There is tenderness to palpation to the 5th distal metatarsal, proximal 5th phalanx. Normal range of motion. Left pedal pulse 2 +and palpable. Normal sensation. Capillary refill less than 2 seconds. Neurovascular status intact. Patient able to wiggle her toes. Course Course Emergency Course: Portions of this record may have been created with voice recognition software Level of Care: Express Care Visit Vital Signs Vital signs: Vital Signs Temperature 98.1 F 02/20/25 08:34 Pulse Rate 87 02/20/25 08:34 Respiratory Rate 16 02/20/25 08:34 Blood Pressure 128/84 02/20/25 08:34 Pulse Oximetry 100 02/20/25 08:34 Oxygen Delivery Room Air 02/20/25 08:34 Temperature 98.1 F 02/20/25 08:34 Pulse Rate 87 02/20/25 08:34 Respiratory Rate 16 02/20/25 08:34 Blood Pressure 128/84 02/20/25 08:34 Pulse Oximetry 100 02/20/25 08:34 Oxygen Delivery Room Air 02/20/25 08:34 Reviewed MDM - Extremity Injury (Lower) MDM Narrative Medical decision making narrative: X-ray 5th toes negative for any fractures or acute findings. Discussed rice therapy. Advised patient pain is continuing to persist to follow-up with ortho or podiatry. Discussed physical exam findings. Advised supportive measures and signs/symptoms to go to the ER. Pt is appropriate for outpt treatment and f/u. Differential Diagnosis Differential diagnosis: Likely fracture of toe and other (Toe sprain, toe contusion, foot fracture) Imaging Data Radiologist's impression: ITS Impressions Toe X-Ray 02/20/25 08:57 IMPRESSION: Negative radiographs of the left fifth toe. Critical Care Time Critical Care Time Critical Care Time: No Discharge Plan Discharge Clinical Impression: Contusion of toe of left foot Qualifiers: Encounter type: initial encounter Toe: lesser toe Damage to nail status: without damage Qualified Code(s): S90.122A - Contusion of left lesser toe(s) without damage to nail, initial encounter Patient Disposition: Home Condition: Stable Instructions: Foot Contusion (ED) Additional Instructions: The x-ray of your pinky toes negative for any fracture or acute findings. Rest and elevate the leg; bear weight as tolerated Apply ice 15-20 minute intervals several times a day You may take ibuprofen 600 mg to 800 mg every 6-8 hours. Do not exceed more than 800 mg of ibuprofen per dose. Do not exceed more than 3200 mg ibuprofen in a day. You may take up to 1000 mg Tylenol every 6-8 hours. Do not exceed 1000 mg per dose, do exceed more than 4000 mg of Tylenol in a day. Follow up with your primary care provider, orthopedist, or insurance professional and 1 week especially if pain is persisting. Patient Language: [place] Prescriptions: No Action naproxen 500 mg tablet 500 mg PO BID Follow-up/Referrals: Julio Truong DPM [Physician, Podiatry] Sachin Estrada MD [Physician, Orthopedics] Shae,ANDRE Tomlinson [Primary Care Provider, Unknown] Time of Disposition: 09:07
== END 2025-02-20 09:10 | disposition home or self-care (01) ==
PROVIDERS: PCP Physician Assistant
DX: S90.122A Contusion of left lesser toe(s) without damage to nail, initial encounter (principal); W22.09XA Striking against other stationary object, initial encounter; F17.210 Nicotine dependence, cigarettes, uncomplicated
CPT/HCPCS: 73660; 99213; G0463